=== PATIENT | female | born 1950 | race Caucasian/White ===

== ENCOUNTER → 2019-07-05 13:24 | Outpatient (CLI) | payer MEDICARE, SELFPAY ==
--- NOTE | ~2019-07-05 | MM_ITS ---
EXAMINATION: MM screening [facility] BI w pal HISTORY: Screening mammogram TECHNIQUE: Craniocaudal and mediolateral oblique 3-D tomosynthesis images were obtained and synthetic 2-D images were generated. CAD analysis was submitted and interpreted. COMPARISON: 04/06/2018, 03/14/2017, 01/08/2016 BREAST PARENCHYMAL COMPOSITION: There are scattered areas of fibroglandular density. FINDINGS: There is stable architectural distortion in the right breast at the site of prior excisiona l biopsy. There is no evidence of suspicious mass, calcification, or architectural distortion to sugg est malignancy in either breast. There has been no suspicious interval change. IMPRESSION: 1. No mammographic evidence of malignancy. 2. Recommend routine screening mammography in one year. BI-RADS Category 2: Benign finding(s). Reviewed, dictated and finalized at location A. MAKER
== END ==
PROVIDERS: PCP Family Medicine; Visit Provider Obstetrics & Gynecology Gynecology
DX: Z12.31 Encounter for screening mammogram for malignant neoplasm of breast (principal)
CPT/HCPCS: 77063; 77067

== ENCOUNTER → 2020-09-01 12:28 | Outpatient (CLI) | payer MEDICARE, SELFPAY ==
--- NOTE | ~2020-09-01 | MM_ITS ---
EXAMINATION: MM screening [facility] BI w pal HISTORY: Screening mammogram TECHNIQUE: Craniocaudal and mediolateral oblique 3-D tomosynthesis images were obtained and synthetic 2-D images were generated. CAD analysis was submitted and interpreted. COMPARISON: 07/05/2019, 04/06/2018, 03/14/2017 bilateral digital screening mammogram examinations BREAST PARENCHYMAL COMPOSITION: There are scattered areas of fibroglandular density. FINDINGS: Stable mild right breast asymmetry; history of right lumpectomy/benign biopsy. There is no evidence of suspicious mass, calcification, or architectural distortion to suggest malignancy in eith er breast. There has been no suspicious interval change. IMPRESSION: 1. No mammographic evidence of malignancy. 2. Recommend routine screening mammography in one year. BI-RADS Category 2: Benign finding(s). Reviewed, dictated and finalized at location A.
--- NOTE | ~2020-09-01 | DEXA_ITS ---
Bone Density Report Name: Ninoska Peraza Age: 69 Sex: Female Ethnicity: White Date of : 1950 Indication: osteopenia; monitoring treatment; parental hip fracture; height loss; prior fracture; postmenopausal Referring Provider: DANNI MINOR Study: Bone densitometry was performed. Exam Date: September 01, 2020 Accession number: [id number] Bone Density: Region BMD T-score Z-score Classification AP Spine (L1, L2) 0.777 -1.8 0.1 Osteopenia Femoral Neck (Left) 0.678 -1.5 0.2 Osteopenia Total Hip (Left) 0.709 -1.9 -0.4 Osteopenia Femoral Neck (Right) 0.659 -1.7 0.1 Osteopenia Total Hip (Right) 0.705 -1.9 -0.5 Osteopenia Total Hip Mean 0.707 -1.9 -0.5 Osteopenia World Health Organization criteria for BMD impression classify patients as: Normal (T-score at or above -1.0), Osteopenia (T-score between -1.0 and -2.5), or Osteoporosis (T-score at or below -2.5). 10-year Fracture Risk: FRAX not reported because: Treated for osteoporosis Previous Exams: Region Exam Age BMD T-score BMD Change BMD Change Date g/cm2 vs Baseline vs Previous AP Spine(L1, L2) 09/01/2020 69 0.777 -1.8 0.026* 0.022 04/06/2018 67 0.755 -2.0 0.003 -0.096* 01/08/2016 65 0.850 -1.2 0.099* 0.069* 12/23/2013 63 0.781 -1.8 0.030* 0.037* 12/08/2011 61 0.744 -2.1 -0.008 -0.020 11/09/2009 58 0.764 -2.0 0.013 0.013 10/29/2008 57 0.751 -2.1 Total Hip(Left) 09/01/2020 69 0.709 -1.9 -0.062* -0.051* 04/06/2018 67 0.760 -1.5 -0.011 -0.075* 01/08/2016 65 0.836 -0.9 0.064* 0.071* 12/23/2013 63 0.764 -1.5 -0.007 -0.050* 11/09/2009 58 0.815 -1.0 0.043* 0.043* 10/29/2008 57 0.771 -1.4 Total Hip(Right) 09/01/2020 69 0.705 -1.9 -0.104* -0.030* 04/06/2018 67 0.736 -1.7 -0.073* -0.081* 01/08/2016 65 0.816 -1.0 0.007 0.018 12/23/2013 63 0.799 -1.2 -0.010 -0.021 11/09/2009 58 0.819 -1.0 0.010 0.010 10/29/2008 57 0.809 -1.1 *Denotes significance at 95% confidence level, LSC for AP Spine = 0.022 g/cm2, LSC for Total Hip = 0.027 g/cm2 Clinical Information Provided by Patient: Has had a low trauma fracture Parent has had a hip fracture Is being treated for osteoporosis Has used the following
== END ==
PROVIDERS: PCP Internal Medicine; Visit Provider Obstetrics & Gynecology Gynecology
DX: Z12.31 Encounter for screening mammogram for malignant neoplasm of breast (principal); Z78.0 Asymptomatic menopausal state; M85.88 Other specified disorders of bone density and structure, other site; M85.852 Other specified disorders of bone density and structure, left thigh; M85.851 Other specified disorders of bone density and structure, right thigh
CPT/HCPCS: 77063; 77067; 77080

== ENCOUNTER → 2021-10-28 13:44 | Outpatient (CLI) | payer MEDICARE, SELFPAY ==
--- NOTE | ~2021-10-28 | MM_ITS ---
EXAMINATION: MM screening [facility] BI w pal HISTORY: Screening mammogram TECHNIQUE: Craniocaudal and mediolateral oblique 3-D tomosynthesis images were obtained and synthetic 2-D images were generated. CAD analysis was submitted and interpreted. COMPARISON: 09/01/2020, 07/05/2019, 04/06/2018 bilateral screening mammogram examinations BREAST PARENCHYMAL COMPOSITION: There are scattered areas of fibroglandular density. FINDINGS: Mild asymmetry in the outer mid left breast. Diagnostic left mammogram is recommended, with ultrasoun d if required. Otherwise no suspicious mass, architectural distortion, malignant calcification, skin thickening or r etraction or significant new or developing density of either breast is noted. IMPRESSION: 1. Mild new asymmetry in the outer mid left breast 2. Diagnostic left mammogram is recommended, with ultrasound if required BI-RADS Category 0: Incomplete: Needs additional imaging evaluation. Reviewed, dictated and finalized at location A.
== END ==
PROVIDERS: PCP Obstetrics & Gynecology Gynecology; Visit Provider Obstetrics & Gynecology Gynecology
DX: Z12.31 Encounter for screening mammogram for malignant neoplasm of breast (principal); R92.8 Other abnormal and inconclusive findings on diagnostic imaging of breast
CPT/HCPCS: 77063; 77067

== ENCOUNTER → 2021-11-15 07:57 | Outpatient (CLI) | payer MEDICARE, SELFPAY ==
--- NOTE | ~2021-11-15 | MMUS_ITS ---
EXAMINATION: MM diagnostic [facility] LT w pal, US breast LT limited HISTORY: Mild new asymmetry in the outer mid left breast reported on 10/28/2021 screening mammogram TECHNIQUE: Additional 3-D tomosynthesis images of the left breast were performed and synthetic 2-D im ages were generated. Rolled medial and rolled lateral craniocaudal views. CAD analysis was submitted and interpreted. High resolution upper outer and lower-outer quadrant left breast ultrasound was perf ormed. COMPARISON: 10/28/2021 bilateral screening mammogram FINDINGS: MAMMOGRAPHIC FINDINGS: No suspicious reproducible mass or architectural distortion noted. ULTRASOUND: 2:00 8 cm from nipple: There is a parallel circumscribed hypoechoic 2.6 x 4.3 x 4.6 mm solid lesion w ithout internal vascularity or posterior shadowing, probably benign. Six-month diagnostic left mammog henny and targeted left breast ultrasound follow-up are recommended. IMPRESSION: 1. Probable benign circumscribed hypoechoic 2.6 x 4.3 x 4.6 mm sonographic lesion at 3:00 8 cm from n ipple 2. 6 month diagnostic left mammogram and targeted left breast ultrasound follow-up are recommended BI-RADS category 3, probably benign findings. Reviewed, dictated and finalized at location A. IMPRESSION: 1. Probable benign circumscribed hypoechoic 2.6 x 4.3 x 4.6 mm sonographic lesi on at 3:00 8 cm from nipple 2. 6 month diagnostic left mammogram and targeted left breast ultrasound follow -up are recommended BI-RADS category 3, probably benign findings.
== END ==
PROVIDERS: PCP Obstetrics & Gynecology Gynecology; Visit Provider Obstetrics & Gynecology Gynecology
DX: R92.8 Other abnormal and inconclusive findings on diagnostic imaging of breast (principal)
CPT/HCPCS: 76642; 77061; 77065; G0279

== ENCOUNTER → 2022-04-11 08:46 | Outpatient (CLI) | payer MEDICARE, SELFPAY ==
--- NOTE | ~2022-04-11 | MMUS_ITS ---
EXAMINATION: MM diagnostic [facility] LT w pal, US breast LT limited HISTORY: Follow-up left breast mass TECHNIQUE: Additional 3-D tomosynthesis images of the left breast were performed and synthetic 2-D im ages were generated. CAD analysis was submitted and interpreted. High resolution Limited left breast ultrasound was performed. COMPARISON: Comparison to multiple prior studies sequentially, with oldest reviewed study dated 02/26. BREAST PARENCHYMAL COMPOSITION: Breast composed of scattered areas of fibroglandular density. FINDINGS: MAMMOGRAPHIC FINDINGS: There are no suspicious masses, calcifications or architectural distortion in the left breast to sugg est malignancy. ULTRASOUND: Limited left breast ultrasound: No suspicious masses are identified in the left breast. The mass seen at the 2:00 position of the left breast on prior examination is not demonstrated. IMPRESSION: 1. No evidence for malignancy in the left breast. 2. Routine yearly screening mammogram and regular clinical breast examination are recommended. BI-RADS Category 1: Negative Reviewed, dictated and finalized at location A. ING SUPERVISOR IMPRESSION: 1. No evidence for malignancy in the left breast. 2. Routine yearly screening mammogram and regular clinical breast examination a re recommended. BI-RADS Category 1: Negative
== END ==
PROVIDERS: PCP Internal Medicine; Visit Provider Obstetrics & Gynecology Gynecology
DX: N63.20 Unspecified lump in the left breast, unspecified quadrant (principal); R92.8 Other abnormal and inconclusive findings on diagnostic imaging of breast
CPT/HCPCS: 76642; 77061; 77065; G0279

== ENCOUNTER → 2022-09-07 10:57 | Outpatient (CLI) | payer MEDICARE, SELFPAY ==
--- NOTE | ~2022-09-07 | DEXA_ITS ---
Bone Density Report Name: CASSANDRA SHEEHAN Age: 71 Sex: Female Ethnicity: White Date of : 1950 Indication: osteopenia; monitoring treatment; height loss; prior fracture; postmenopausal Referring Provider: DANNI MINOR Study: Bone densitometry was performed. Exam Date: September 07, 2022 Accession number: [id number] Bone Density: Region BMD T-score Z-score Classification AP Spine (L1, L2) 0.988 0.1 2.2 Normal Femoral Neck (Left) 0.699 -1.4 0.5 Osteopenia Total Hip (Left) 0.746 -1.6 0.0 Osteopenia Femoral Neck (Right) 0.727 -1.1 0.8 Osteopenia Total Hip (Right) 0.703 -2.0 -0.4 Osteopenia Total Hip Mean 0.725 -1.8 -0.2 Osteopenia World Health Organization criteria for BMD impression classify patients as: Normal (T-score at or above -1.0), Osteopenia (T-score between -1.0 and -2.5), or Osteoporosis (T-score at or below -2.5). 10-year Fracture Risk: FRAX not reported because: Treated for osteoporosis Previous Exams: Region Exam Age BMD T-score BMD Change BMD Change Date g/cm2 vs Baseline vs Previous AP Spine(L1, L2) 09/07/2022 71 0.988 0.1 0.237* 0.212* 09/01/2020 69 0.777 -1.8 0.026* 0.022 04/06/2018 67 0.755 -2.0 0.003 -0.096* 01/08/2016 65 0.850 -1.2 0.099* 0.069* 12/23/2013 63 0.781 -1.8 0.030* 0.037* 12/08/2011 61 0.744 -2.1 -0.008 -0.020 11/09/2009 58 0.764 -2.0 0.013 0.013 10/29/2008 57 0.751 -2.1 Total Hip(Left) 09/07/2022 71 0.746 -1.6 -0.026 0.036* 09/01/2020 69 0.709 -1.9 -0.062* -0.051* 04/06/2018 67 0.760 -1.5 -0.011 -0.075* 01/08/2016 65 0.836 -0.9 0.064* 0.071* 12/23/2013 63 0.764 -1.5 -0.007 -0.050* 11/09/2009 58 0.815 -1.0 0.043* 0.043* 10/29/2008 57 0.771 -1.4 Total Hip(Right) 09/07/2022 71 0.703 -2.0 -0.106* -0.002 09/01/2020 69 0.705 -1.9 -0.104* -0.030* 04/06/2018 67 0.736 -1.7 -0.073* -0.081* 01/08/2016 65 0.816 -1.0 0.007 0.018 12/23/2013 63 0.799 -1.2 -0.010 -0.021 11/09/2009 58 0.819 -1.0 0.010 0.010 10/29/2008 57 0.809 -1.1 *Denotes significance at 95% confidence level, LSC for AP Spine = 0.022 g/cm2, LSC for Total Hip = 0.027 g/cm2 Clinical Information Provided by Patient:
== END ==
PROVIDERS: PCP Internal Medicine; Visit Provider Obstetrics & Gynecology Gynecology
DX: Z78.0 Asymptomatic menopausal state (principal); M85.89 Other specified disorders of bone density and structure, multiple sites
CPT/HCPCS: 77080

== ENCOUNTER → 2023-06-10 08:44 | Outpatient (CLI) | payer MEDICARE, OTHER, SELFPAY ==
--- NOTE | ~2023-06-10 | MM_ITS ---
EXAMINATION: MM screening [facility] BI w pal HISTORY: Screening mammogram TECHNIQUE: Craniocaudal and mediolateral oblique 3-D tomosynthesis images were obtained and synthetic 2-D images were generated. CAD analysis was submitted and interpreted. COMPARISON: 04/11/2022, 11/15/2021, 10/28/2021, 09/01/2020 BREAST PARENCHYMAL COMPOSITION:Not Dense. There are scattered areas of fibroglandular density. FINDINGS: There is a slightly more conspicuous ovoid asymmetry in the central subareolar left breast on MLO view. No suspicious mass, calcification, or architectural distortion are identified in the rig ht breast. No suspicious microcalcification either breast. IMPRESSION: More conspicuous ovoid asymmetry in the central subareolar left breast on MLO view. Spot compression and true lateral views, and possibly ultrasound, are recommended for further evaluation. BI-RADS Category 0: Incomplete: Needs additional imaging evaluation. Reviewed, dictated and finalized at [facility]. ECTIONAL CASE MANAGER IMPRESSION: More conspicuous ovoid asymmetry in the central subareolar left breast on MLO v iew. Spot compression and true lateral views, and possibly ultrasound, are rupinder mmended for further evaluation. BI-RADS Category 0: Incomplete: Needs additional imaging evaluation.
== END ==
PROVIDERS: PCP Nurse Practitioner Family; Visit Provider Obstetrics & Gynecology Gynecology
DX: Z12.31 Encounter for screening mammogram for malignant neoplasm of breast (principal); R92.8 Other abnormal and inconclusive findings on diagnostic imaging of breast
CPT/HCPCS: 77063; 77067

== ENCOUNTER → 2023-07-06 08:43 | Outpatient (CLI) | payer MEDICARE, SELFPAY ==
--- NOTE | ~2023-07-06 | MMUS_ITS ---
EXAMINATION: MM diagnostic [facility] LT w pal, US breast LT limited HISTORY: Asymmetrical ovoid opacity in central subareolar area of left breast on screening MLO view o f 06/10/2023 TECHNIQUE: Additional 3-D tomosynthesis images of the left breast were performed and synthetic 2-D im ages were generated. CAD analysis was submitted and interpreted. High resolution upper outer and lowe r-outer quadrant left breast ultrasound was performed. COMPARISON: 06/10/2023 bilateral screening mammogram 04/11/2022 diagnostic left mammogram and limited left breast ultrasound FINDINGS: MAMMOGRAPHIC FINDINGS: Questionable approximately 3.6 x 5.5 mm mass in the outer mid left breast approximately 2.2 cm deep t o the nipple. ULTRASOUND: 1:00 3 cm from nipple: Hypoechoic 3 x 2 x 2.4 mm circumscribed lesion is noted without shadowing, lik sindy a small cyst. No suspicious mass or shadowing is evident. IMPRESSION: 1. Probable benign finding 2. Six-month diagnostic left mammogram follow-up is recommended, with ultrasound if required BI-RADS category 3, probably benign findings. Reviewed, dictated and finalized at location A. ER OPERATOR IMPRESSION: 1. Probable benign finding 2. Six-month diagnostic left mammogram follow-up is recommended, with ultrasoun d if required BI-RADS category 3, probably benign findings.
== END ==
PROVIDERS: PCP Obstetrics & Gynecology Gynecology; Visit Provider Obstetrics & Gynecology Gynecology
DX: R92.8 Other abnormal and inconclusive findings on diagnostic imaging of breast (principal)
CPT/HCPCS: 76642; 77061; 77065; G0279

== ENCOUNTER 2024-01-04 09:23 | Outpatient (CLI) | payer MEDICARE, SELFPAY ==
--- NOTE | ~2024-01-04 | MMUS_ITS ---
EXAMINATION: MM diagnostic [facility] LT w pal, US breast LT limited HISTORY: Follow-up left breast mass TECHNIQUE: Additional 3-D tomosynthesis images of the left breast were performed and synthetic 2-D im ages were generated. CAD analysis was submitted and interpreted. High resolution Limited left breast ultrasound was performed. COMPARISON: Comparison to multiple prior studies sequentially, with oldest reviewed study dated 10/2020. BREAST PARENCHYMAL COMPOSITION: Not dense: There are scattered areas of fibroglandular density. FINDINGS: MAMMOGRAPHIC FINDINGS: There are no suspicious masses, calcifications or architectural distortion in the left breast to sugg est malignancy. ULTRASOUND: Limited left breast ultrasound: Normal heterogeneous echotexture without focal solid or cystic mass. IMPRESSION: 1. No evidence for malignancy in the left breast. 2. Routine yearly screening mammogram and regular clinical breast examination are recommended. BI-RADS Category 1: Negative Reviewed, dictated and finalized at location B. IMPRESSION: 1. No evidence for malignancy in the left breast. 2. Routine yearly screening mammogram and regular clinical breast examination a re recommended. BI-RADS Category 1: Negative
== END 2024-01-04 09:24 ==
LOC: MICIMG 09:23
PROVIDERS: PCP Nurse Practitioner Family; Visit Provider Obstetrics & Gynecology Gynecology
DX: N63.20 Unspecified lump in the left breast, unspecified quadrant (principal); R92.8 Other abnormal and inconclusive findings on diagnostic imaging of breast
CPT/HCPCS: 76642; 77061; 77065; G0279

== ENCOUNTER 2024-09-10 13:57 | Outpatient (CLI) | payer MEDICARE, SELFPAY ==
--- NOTE | ~2024-09-10 | DEXA_ITS ---
Bone Density Report Name: CASSANDRA SHEEHAN Age: 73 Sex: Female Ethnicity: White Date of : 1950 Indication: postmenopausal; screening for osteoporosis; parental hip fracture; height loss; Referring Provider: DANNI MINOR Study: Bone densitometry was performed. Exam Date: September 10, 2024 Accession number: [id number] Bone Density: Region BMD T-score Z-score Classification AP Spine(L2, L3) 1.018 -0.4 2.0 Normal Femoral Neck (Left) 0.686 -1.5 0.5 Osteopenia Total Hip (Left) 0.824 -1.0 0.7 Normal Femoral Neck (Right) 0.721 -1.2 0.9 Osteopenia Total Hip (Right) 0.808 -1.1 0.6 Osteopenia Total Hip Mean 0.816 -1.1 0.7 Osteopenia World Health Organization criteria for BMD impression classify patients as: Normal (T-score at or above -1.0), Osteopenia (T-score between -1.0 and -2.5), or Osteoporosis (T-score at or below -2.5). 10-year Fracture Risk: FRAX not reported because: Treated for osteoporosis Clinical Information Provided by Patient: Parent has had a hip fracture Is being treated for osteoporosis Has used the following medications: Actonel (i.e. risedronate), Prolia (i.e. denosumab), Vitamin D, Calcium Patient maximum height was 64 Menopause Age: 49 Onset of menses at age 12 Number of children 2 Impression: The patient has low bone mass, based on the Left Femoral Neck T-score. The patient has risk factors, including: parental hip fracture. Discussion: It is important to ask patients whether they are taking their medications and to encourage continued and appropriate compliance with their osteoporosis therapies to reduce fracture risk. It is also important to review their risk factors and encourage appropriate calcium and vitamin D intakes, exercise, fall prevention and other lifestyle measures. Follow-Up: Consider a repeat BMD and Vertebral Fracture Assessment (VFA) exam in 2 years or sooner if medically necessary, to reassess this patient's status. Reported by: JAQUELINE on 09/10/2024 2:45:00 PM. Reviewed, dictated and finalized at location AStorm LINCOLN
--- OUTSIDE RECORDS SUMMARY | 2024-09-10 15:04 | XMS_ITS | Clinical Summary ---
Author Organization [facility] Address [address] [place] [address] Care Team Providers Care Dioramist Name Role Phone Nito De La Cruz MD Primary Care Provider Source Comments [facility],non-owned Affiliates and Associated Physician Practices is amultiple site organization consisting of ambulatory clinics and hospital sitesin [place], [place], [place] and [place]. This disclosure is being madepursuant to the Care Everywhere program and may not contain all information available regarding this patient. Last updated 18.[facility] Medications * Be aware that medications may not be up to date on this document. Alwaysverify current medications with the patient. escitalopram (LEXAPRO) 10 MG tablet 0 05/05/2017 Active aspirin (ASPIRIN) 81 MG chew tablet Take 81 mg by mouth DAILY. 100 tablet 3 04/27/2017 Active atorvastatin (LIPITOR) 80 MG tablet Take 80 mg by mouth. 30 tablet 3 04/26/2017 Active losartan (COZAAR) 25 MG tablet Take 25 mg by mouth DAILY. 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 04/18/2017 Social History Tobacco Use Types Packs/Day Years Used Date Smoking Tobacco: Never Smokeless Tobacco: Never Alcohol Use Standard Drinks/Week Comments Yes 0 (1 standard drink = 0.6 oz pur e alcohol) Comments Unknown Sex and Gender Information Value Date Recorded Sex Assigned at Not on file Legal Sex Female 5:56 PM PNEUMATIC TUBE FITTER Gender Identity Not on file Sexual Orientation Not on file Last Filed Vital Signs Vital Sign Reading Time Taken Comments Blood Pressure 138/92 06/01/2017 9:29 AM PNEUMATIC TUBE FITTER Pulse 81 06/01/2017 9:29 AM PNEUMATIC TUBE FITTER Temperature 36.7 C (98 F) 06/01/2017 9:29 AM PNEUMATIC TUBE FITTER Respiratory Rate 20 04/26/2017 8:06 AM PNEUMATIC TUBE FITTER Oxygen Saturation 96% 04/26/2017 8:06 AM PNEUMATIC TUBE FITTER Inhaled Oxygen Concentration - - Weight 74.4 kg (164 lb) 06/01/2017 9:29 AM PNEUMATIC TUBE FITTER Height 160 cm (5' 3 ) 06/01/2017 9:29 AM PNEUMATIC TUBE FITTER Body Mass Index 29.05 06/01/2017 9:29 AM PNEUMATIC TUBE FITTER Plan of Treatment Health Maintenance Due Date Last Done Comments BONE DENSITY TESTING 1950 COLOGUARD (AGES 45-75) - COL ON CA SCREENING 1950 COLON MONITORING 1950 COLONOSCOPY - COLON CA SCREENING 1950 CT COLONOGRAPHY - COLON CA SCREENING 1950 Colorectal Cancer Screening 1950 FIT - COLON CA SCREENING 1950 FLEX SIG - COLON CA SCREENING 1950 MAMMOGRAM 1950 HEPATITIS C SCREENING 11/29/1968 DTAP/TDAP/TD VACCINES (1 - Tdap) 1969 PNEUMOCOCCAL VACCINE 50+ (1 of 1 - PCV) 2000 ZOSTER VACCINE (1 of 2) 2000 COVID-19 VACCINE ( - 2023-2 5 season) 2024 DEPRESSION SCREENING 05/29/2024 INFLUENZA VACCINE (Season Ended) 2025 Respiratory Syncytial Virus (RSV) Vaccine Pt: or over 60 yrs (1 - 1-dose 75+ series) 2025 HEPATITIS B VACCINE Aged Out No longe r eligible based on patient's age to complete this topic HIB VACCINE Aged Out No longer eligi ble based on patient's age to complete this topic HPV VACCINE Aged Out No longer eligi ble based on patient's age to complete this topic MENINGOCOCCAL (Group B) VACC INE SHARED DECISION-MAKING Aged Out No longer eligibl e based on patient's age to complete this topic MENINGOCOCCAL GROUPS A/C/Y/W VACCINE Aged Out No longer eligible b ased on patient's age to complete this topic Care Teams Dioramist Relationship Specialty Start Date End Date Ntio De La Cruz MD [address] [place] [address] [facility] - General 06/01/17
== END 2024-09-10 13:58 | disposition home or self-care (01) ==
PROVIDERS: PCP Nurse Practitioner Family; Visit Provider Obstetrics & Gynecology Gynecology
DX: M85.89 Other specified disorders of bone density and structure, multiple sites (principal); Z78.0 Asymptomatic menopausal state; Z13.820 Encounter for screening for osteoporosis
CPT/HCPCS: 77080

== ENCOUNTER 2024-10-23 14:33 | Outpatient (CLI) | payer MEDICARE, SELFPAY ==
--- NOTE | ~2024-10-23 | MM_ITS ---
EXAMINATION: MM screening [facility] BI w pal HISTORY: Screening TECHNIQUE: Craniocaudal and mediolateral oblique 3-D tomosynthesis images were obtained and synthetic 2-D images were generated. CAD analysis was submitted and interpreted. COMPARISON: Comparison to multiple prior studies sequentially, with oldest reviewed study dated 06/2021. BREAST PARENCHYMAL COMPOSITION: Not dense: There are scattered areas of fibroglandular density. FINDINGS: There is no evidence of suspicious mass, calcification, or architectural distortion to sugg est malignancy in either breast. There has been no suspicious interval change. IMPRESSION: 1. No mammographic evidence of malignancy. 2. Recommend routine screening mammography in one year. BI-RADS Category 1: Negative Reviewed, dictated and finalized at location A.
== END 2024-10-23 14:34 | disposition home or self-care (01) ==
LOC: MICIMG 14:35
PROVIDERS: PCP Nurse Practitioner Family; Visit Provider Obstetrics & Gynecology Gynecology
DX: Z12.31 Encounter for screening mammogram for malignant neoplasm of breast (principal)
CPT/HCPCS: 77063; 77067